=== PATIENT | female | born 2000 | race African-American/Black ===

== ENCOUNTER 2021-08-03 07:14 | Day surgery (SDC) | payer OTHER ==
[2021-08-03] MEDS ORDERED: IRON SUCROSE INJECTION 200 MG in SODIUM CHLORIDE 100 ML IVPB ONE (10:00)
[2021-08-03 10:57] VITALS: TEMP 98.9
[2021-08-03 13:42] VITALS: BP 110/63; PULSE 71
== END 2021-08-03 12:15 | disposition home or self-care (01) ==
LOC: JONCNONCHE 07:14
PROVIDERS: ATTEND Internal Medicine Hematology & Oncology
PROC: 3E033GC Introduction of Other Therapeutic Substance into Peripheral Vein, Percutaneous Approach (ICD-10-PCS; principal; 2021-08-03)
DX: D50.9 Iron deficiency anemia, unspecified (principal)
CPT/HCPCS: 96365; J1756

== ENCOUNTER 2021-08-10 07:19 | Day surgery (SDC) | payer OTHER ==
[2021-08-10] MEDS ORDERED: IRON SUCROSE INJECTION 200 MG in SODIUM CHLORIDE 100 ML IVPB ONE (10:00)
[2021-08-10 10:48] VITALS: TEMP 98.5
[2021-08-10 13:00] VITALS: BP 117/78; PULSE 74
== END 2021-08-10 11:40 | disposition home or self-care (01) ==
LOC: JONCNONCHE 07:19
PROVIDERS: ATTEND Internal Medicine Hematology & Oncology
PROC: 3E033GC Introduction of Other Therapeutic Substance into Peripheral Vein, Percutaneous Approach (ICD-10-PCS; principal; 2021-08-10)
DX: D50.9 Iron deficiency anemia, unspecified (principal)
CPT/HCPCS: 96365; J1756

== ENCOUNTER 2021-08-17 06:20 | Day surgery (SDC) | payer OTHER ==
[2021-08-17] MEDS ORDERED: IRON SUCROSE INJECTION 200 MG in SODIUM CHLORIDE 100 ML IVPB ONE (10:00)
[2021-08-17 16:36] VITALS: TEMP 98.5
[2021-08-17 16:41] VITALS: BP 107/67; PULSE 81
== END 2021-08-17 16:44 | disposition home or self-care (01) ==
LOC: JONCNONCHE 06:20
PROVIDERS: ATTEND Internal Medicine Hematology & Oncology
PROC: 3E033GC Introduction of Other Therapeutic Substance into Peripheral Vein, Percutaneous Approach (ICD-10-PCS; principal; 2021-08-17)
DX: D50.9 Iron deficiency anemia, unspecified (principal)
CPT/HCPCS: 96365; J1756

== ENCOUNTER 2021-08-24 08:35 | Day surgery (SDC) | payer OTHER ==
[2021-08-24] MEDS ORDERED: IRON SUCROSE INJECTION 200 MG in SODIUM CHLORIDE 100 ML IVPB ONE (10:00)
[2021-08-24 17:04] VITALS: TEMP 98.1
[2021-08-24 17:07] VITALS: BP 131/89; PULSE 87
== END 2021-08-24 11:30 | disposition home or self-care (01) ==
LOC: JONCNONCHE 08:35
PROVIDERS: ATTEND Internal Medicine Hematology & Oncology
PROC: 3E033GC Introduction of Other Therapeutic Substance into Peripheral Vein, Percutaneous Approach (ICD-10-PCS; principal; 2021-08-24)
DX: D50.9 Iron deficiency anemia, unspecified (principal)
CPT/HCPCS: 96365; J1756

== ENCOUNTER 2021-10-26 15:25 | Day surgery (SDC) | payer OTHER ==
[~2021-10-26 15:25] MED LIST: IRON SUCROSE INJECTION 200 MG in SODIUM CHLORIDE 100 ML IVPB ONE
[2021-10-26 18:54] VITALS: BP 110/71; PULSE 87; TEMP 98.6
== END 2021-10-26 17:30 | disposition home or self-care (01) ==
LOC: JONCNONCHE 15:25
PROVIDERS: ATTEND Internal Medicine Hematology & Oncology
PROC: 3E033GC Introduction of Other Therapeutic Substance into Peripheral Vein, Percutaneous Approach (ICD-10-PCS; principal; 2021-10-26)
DX: D50.9 Iron deficiency anemia, unspecified (principal)
CPT/HCPCS: 96365; J1756

== ENCOUNTER 2021-11-02 07:19 | Day surgery (SDC) | payer OTHER ==
[2021-11-02] MEDS ORDERED: IRON SUCROSE INJECTION 200 MG in SODIUM CHLORIDE 100 ML IVPB ONE (10:00)
[2021-11-02 17:27] VITALS: BP 115/78; PULSE 80; TEMP 98.5
== END 2021-11-02 17:10 | disposition home or self-care (01) ==
LOC: JONCCHEMO 07:19
PROVIDERS: ATTEND Internal Medicine Hematology & Oncology
PROC: 3E033GC Introduction of Other Therapeutic Substance into Peripheral Vein, Percutaneous Approach (ICD-10-PCS; principal; 2021-11-02)
DX: D50.9 Iron deficiency anemia, unspecified (principal)
CPT/HCPCS: 96365; J1756

== ENCOUNTER 2021-11-16 06:32 | Day surgery (SDC) | payer OTHER ==
[2021-11-16] MEDS ORDERED: IRON SUCROSE INJECTION 200 MG in SODIUM CHLORIDE 100 ML IVPB ONE (10:00)
[2021-11-16 16:29] VITALS: BP 127/82; PULSE 112; TEMP 99.1
== END 2021-11-16 12:45 | disposition home or self-care (01) ==
LOC: JONCNONCHE 06:32
PROVIDERS: ATTEND Internal Medicine Hematology & Oncology
PROC: 3E033GC Introduction of Other Therapeutic Substance into Peripheral Vein, Percutaneous Approach (ICD-10-PCS; principal; 2021-11-16)
DX: D50.9 Iron deficiency anemia, unspecified (principal)
CPT/HCPCS: 96365; J1756

== ENCOUNTER 2021-11-19 17:12 | Emergency (ER) | payer OTHER ==
[2021-11-19 17:18] VITALS: BP 100/65; PULSE 87; TEMP 98.3; BMI 29.5
== END 2021-11-19 19:50 | disposition home or self-care (01) ==
LOC: JERFT 17:12
DX: Z48.02 Encounter for removal of sutures (principal)
CPT/HCPCS: 99281-25

== ENCOUNTER 2021-12-08 06:50 | Day surgery (SDC) | payer OTHER ==
[2021-12-08] MEDS ORDERED: IRON SUCROSE INJECTION 300 MG in SODIUM CHLORIDE 250 ML IVPB ONE (13:30)
[2021-12-08 16:50] VITALS: BP 110/89; PULSE 76; TEMP 98.3
== END 2021-12-08 16:50 | disposition home or self-care (01) ==
LOC: JONCNONCHE 06:50
PROVIDERS: ATTEND Internal Medicine Hematology & Oncology
PROC: 3E033GC Introduction of Other Therapeutic Substance into Peripheral Vein, Percutaneous Approach (ICD-10-PCS; principal; 2021-12-08)
DX: D50.9 Iron deficiency anemia, unspecified (principal)
CPT/HCPCS: 96365; J1756

== ENCOUNTER 2021-12-14 21:57 | Emergency (ER) | payer OTHER ==
[2021-12-14 22:08] VITALS: BP 122/78; PULSE 97; TEMP 98.7; BMI 34.3
[2021-12-15 01:47] LABS: CALCIUM 9.2 mg/dL (8.5-10.1)
[2021-12-15 01:48] LABS: ALBUMIN 3.8 g/dl (3.4-5.0); BASO % 0.7 % (0-2.0); BLOOD UREA NITROGEN 12.7 mg/dL (7-18); EOS % 3.3 % (0-4.5); HEMATOCRIT 30.3 % (32.4-45.2); HEMOGLOBIN 9.6 GM/dL (10.7-15.3); LYMPH % 42.3 % (8-40); MCH 27.4 pg (25.7-33.7); MCHC 31.7 g/dl (32.0-36.0); MEAN CELL VOLUME 86.5 fl (80-96); MEAN PLT VOLUME 7.7 fl (7.5-11.1); MONO % 8.4 % (3.8-10.2); NEUT % 45.3 % (42.8-82.8); PLATELET COUNT 326 10^3/uL (134-434); RBC 3.51 M/mm3 (3.60-5.2); RDW 14.9 % (11.6-15.6); WHITE BLOOD COUNT 4.4 K/mm3 (4.0-10.0)
[2021-12-15 01:51] LABS: CREATININE 0.8 mg/dL (0.55-1.3)
[2021-12-15 01:52] LABS: BILIRUBIN,TOTAL 0.2 mg/dL (0.2-1); TOT PROT 7.2 g/dl (6.4-8.2)
[2021-12-15 02:43] LABS: INR 1.15 (0.83-1.09); PROTHROMBIN TIME (PATIENT) 13.3 SEC (9.7-13.0)
[2021-12-15 02:45] LABS: ACTIVATED PTT 37.5 SECONDS (25.2-36.5)
== END 2021-12-15 02:46 | disposition home or self-care (01) ==
LOC: JER 21:57
DX: M79.89 Other specified soft tissue disorders (principal)
CPT/HCPCS: 36415; 80053; 85025; 85379; 85610; 85730; 93970-TC; 99284-25

== ENCOUNTER → 2022-02-24 | Emergency (ER) | payer OTHER | END | disposition home or self-care (01) | LOC: JER 03:37 | DX: J34.89 Other specified disorders of nose and nasal sinuses (principal) | CPT/HCPCS: 0241U-QW; 99283-25 ==

== ENCOUNTER 2023-01-16 10:08 | Day surgery (SDC) | payer OTHER ==
[~2023-01-16 10:08] MED LIST changes: +IRON SUCROSE COMPLEX 200 MG in SODIUM CHLORIDE 100 ML IVPB ONE; -IRON SUCROSE INJECTION 200 MG in SODIUM CHLORIDE 100 ML IVPB ONE
[2023-01-16 15:12] VITALS: BP 111/64; PULSE 82; RESP 20; TEMP 98.3
== END 2023-01-16 11:50 | disposition home or self-care (01) ==
LOC: JONCNONCHE 10:08 → J7W 10:08 → JONCNONCHE 11:50
PROVIDERS: ATTEND Internal Medicine Hematology & Oncology
PROC: 3E033GC Introduction of Other Therapeutic Substance into Peripheral Vein, Percutaneous Approach (ICD-10-PCS; principal; 2023-01-16)
DX: D50.9 Iron deficiency anemia, unspecified (principal)
CPT/HCPCS: 96365

== ENCOUNTER 2023-05-15 15:51 | Emergency (ER) | payer OTHER ==
[2023-05-15 16:11] VITALS: RESP 18; BMI 39.8
[2023-05-15 18:03] VITALS: BP 105/69; PULSE 79
[2023-05-15 18:28] VITALS: TEMP 97.7
== END 2023-05-15 18:25 | disposition home or self-care (01) ==
LOC: JER 15:51
DX: O98.513 Other viral diseases complicating pregnancy, third trimester (principal); U07.1 COVID-19; O26.893 Other specified pregnancy related conditions, third trimester; R09.81 Nasal congestion; R07.9 Chest pain, unspecified; R53.83 Other fatigue; Z3A.39 39 weeks gestation of pregnancy; Z20.822 Contact with and (suspected) exposure to COVID-19
CPT/HCPCS: 0241U-QW; 99283-25

== ENCOUNTER 2023-05-26 20:57 | Inpatient (IN) | payer OTHER ==
[2023-05-26] MEDS ORDERED: BUTORPHANOL TARTRATE 2 MG/ML VIAL IVPB PRN (22:03)
[2023-05-26] MEDS ORDERED: PROMETHAZINE HCL 25 MG/1 ML VIAL IVPB ONE (22:03)
[2023-05-26] MEDS ORDERED: AMPICILLIN - 2 GM in SODIUM CHLORIDE 100 ML IVPB ONE (22:03)
[2023-05-26] MEDS ORDERED: ELECTROLYTE-148 SOLN 1,000 ML IV SCH (22:15)
[2023-05-26 22:25] VITALS: BMI 38.4
[2023-05-26] MEDS ORDERED: AMPICILLIN SODIUM 2 GM VIAL ONE (22:43)
[2023-05-27 00:11] LABS: BASO % 0.3 % (0-2.0); HEMATOCRIT 35.4 % (32.4-45.2); HEMOGLOBIN 11.3 GM/dL (10.7-15.3); LYMPH % 19.2 % (8-40); MCH 24.9 pg (25.7-33.7); MCHC 31.9 g/dl (32.0-36.0); MEAN CELL VOLUME 78.1 fl (80-96); MEAN PLT VOLUME 8.4 fl (7.5-11.1); MONO % 9.8 % (3.8-10.2); NEUT % 69.7 % (42.8-82.8); PLATELET COUNT 351 10^3/uL (134-434); RBC 4.54 M/mm3 (3.60-5.2); RDW 17.3 % (11.6-15.6); WHITE BLOOD COUNT 7.5 K/mm3 (4.0-10.0)
[2023-05-27 00:21] LABS: INR 0.97 (0.83-1.09); PROTHROMBIN TIME (PATIENT) 11.3 SEC (9.7-13.0)
[2023-05-27 00:26] LABS: POTASSIUM 4.2 mmol/L (3.5-5.1)
[2023-05-27 00:27] LABS: CALCIUM 9.8 mg/dL (8.5-10.1)
[2023-05-27 00:28] LABS: BLOOD UREA NITROGEN 9.1 mg/dL (7-18)
[2023-05-27 00:31] LABS: CREATININE 0.6 mg/dL (0.55-1.3)
[2023-05-27] MEDS ORDERED: PROMETHAZINE HCL 25 MG/1 ML VIAL ONE (02:10)
[2023-05-27] MEDS ORDERED: BUTORPHANOL TARTRATE 2 MG/ML VIAL ONE (02:10)
[2023-05-27] MEDS ORDERED: AMPICILLIN NA/SULBACTAM NA 1.5 GM in SODIUM CHLORIDE 100 ML IVPB SCH (03:00)
[2023-05-27] MEDS: AMPICILLIN - 1 GM in SODIUM CHLORIDE 100 ML IVPB SCH ×2 (03:30→07:41)
[2023-05-27] MEDS ORDERED: OXYTOCIN 20 UNITS in 0.9% NS 20 UNIT/1,000 ML INFUS.BAG IV ONE (04:19)
[2023-05-27] MEDS ORDERED: AMPICILLIN SODIUM 1 GM VIAL ONE (04:19)
[2023-05-27] MEDS ORDERED: BENZOCAINE 28 GM HEMORRHOIDAL OINTMENT TP PRN (04:54)
[2023-05-27] MEDS ORDERED: ACETAMINOPHEN 325 MG TABLET (FP) PO PRN (04:54)
[2023-05-27] MEDS ORDERED: METHYLERGONOVINE MALEATE 0.2 MG/1 ML AMP IM PRN (04:54)
[2023-05-27] MEDS ORDERED: oxyCODONE HCL 5 MG TABLET PO PRN (04:54)
[2023-05-27] MEDS ORDERED: WITCH HAZEL 50% (TUCKS) 40 PAD/JAR PAD TP PRN (04:54)
[2023-05-27] MEDS ORDERED: BENZOCAINE 20% 57 GM BOTTLE TP PRN (04:54)
[2023-05-27] MEDS ORDERED: BISACODYL 10 MG SUPP.RECT RC PRN (04:54)
[2023-05-27] MEDS ORDERED: OXYTOCIN 20 UNITS in 0.9% NS 20 UNIT/1,000 ML INFUS.BAG IV SCH (05:00)
[2023-05-27] MEDS ORDERED: ACETAMINOPHEN 325 MG TABLET (FP) ONE (07:34)
[2023-05-27] MEDS: FERROUS SO4 325 MG TABLET (FP) PO SCH ×3 (09:05→16:53)
[2023-05-27] MEDS: PRENATAL VITAMINS W/ FOLIC ACID TABLET (FP) PO SCH (09:05)
[2023-05-27] MEDS: IBUPROFEN 600 MG TABLET (FP) PO PRN (19:33)
[2023-05-28] MEDS: FERROUS SO4 325 MG TABLET (FP) PO SCH ×3 (08:18→17:39)
[2023-05-28 08:19] LABS: BASO % 0.4 % (0-2.0); EOS % 1.4 % (0-4.5); HEMATOCRIT 30.4 % (32.4-45.2); HEMOGLOBIN 9.6 GM/dL (10.7-15.3); LYMPH % 29.4 % (8-40); MCH 24.7 pg (25.7-33.7); MCHC 31.6 g/dl (32.0-36.0); MEAN CELL VOLUME 78.1 fl (80-96); MEAN PLT VOLUME 8.3 fl (7.5-11.1); MONO % 7.4 % (3.8-10.2); NEUT % 61.4 % (42.8-82.8); PLATELET COUNT 276 10^3/uL (134-434); RBC 3.89 M/mm3 (3.60-5.2); RDW 17.7 % (11.6-15.6); WHITE BLOOD COUNT 8.9 K/mm3 (4.0-10.0)
[2023-05-28] MEDS: PRENATAL VITAMINS W/ FOLIC ACID TABLET (FP) PO SCH (09:03)
[2023-05-28] MEDS ORDERED: DIPHTH,PERTUSS(ACELL),TET 0.5 ML DISP.SYRIN IM ONE (10:00)
[2023-05-28] MEDS: IBUPROFEN 600 MG TABLET (FP) PO PRN (10:31)
[2023-05-28] MEDS ORDERED: SENNOSIDES/DOCUSATE COMBO (SENNA PLUS) TABLET (UD) PO PRN (22:00)
[2023-05-29] MEDS: IBUPROFEN 600 MG TABLET (FP) PO PRN (00:04)
[2023-05-29] MEDS: PRENATAL VITAMINS W/ FOLIC ACID TABLET (FP) PO SCH (09:05)
[2023-05-29] MEDS: FERROUS SO4 325 MG TABLET (FP) PO SCH ×2 (09:05→12:56)
[2023-05-29 12:47] VITALS: BP 115/75; PULSE 74; RESP 18; TEMP 97.8
[2023-06-06 13:50] LABS: POC NITRAZINE POS
== END 2023-05-29 13:20 | disposition home or self-care (01) | DRG 560 ==
LOC: JLDR 20:57 → J3W 05-27 07:50
PROVIDERS: ADMIT Obstetrics & Gynecology; ATTEND Obstetrics & Gynecology
PROC: 10E0XZZ Delivery of Products of Conception, External Approach (ICD-10-PCS; principal; 2023-05-27)
DX: O48.0 Post-term pregnancy (principal); O69.81X0 Labor and delivery complicated by cord around neck, without compression, not applicable or unspecified; O99.824 Streptococcus B carrier state complicating childbirth; Z3A.40 40 weeks gestation of pregnancy; Z37.0 Single live birth
CPT/HCPCS: 36415; 80048; 83986-QW; 84450; 84460; 85025; 85610; 85730; 86780; 86850; 86900; 86901; 87389; 90715